=== PATIENT | male | born 1995 | race African-American/Black ===

== ENCOUNTER 2017-01-26 20:08 | Emergency (ER) | payer MEDICAID ==
[~2017-01-26] VITALS: Ht 180.3 cm; Wt 60.2 kg
[2017-01-26 20:19] VITALS: BP 152/72
== END 2017-01-26 20:56 | disposition home or self-care (01) ==
LOC: ED 20:35
DX: F10.120 Alcohol abuse with intoxication, uncomplicated (principal); F12.10 Cannabis abuse, uncomplicated; G40.909 Epilepsy, unspecified, not intractable, without status epilepticus
CPT/HCPCS: 99283

== ENCOUNTER 2018-08-26 15:55 | Emergency (ER) | payer MEDICAID ==
[~2018-08-26] VITALS: Ht 167.6 cm; Wt 71.4 kg
[~2018-08-26 15:55] MED LIST: LEVE500V6 PO
[2018-08-26 16:00] VITALS: BP 139/79
[2018-08-26] MEDS ORDERED: KETOROLAC 30 MG/1 ML ONE (17:21)
[2018-08-26] MEDS ORDERED: KETOROLAC 30 MG/1 ML IM ONE (17:30)
== END 2018-08-26 17:39 | disposition home or self-care (01) ==
LOC: ED 17:20
DX: G89.29 Other chronic pain (principal); M25.551 Pain in right hip; Q65.89 Other specified congenital deformities of hip; G40.909 Epilepsy, unspecified, not intractable, without status epilepticus
CPT/HCPCS: 73502; 96372; 99284; J1885

== ENCOUNTER 2018-09-13 12:09 | Emergency (ER) | payer MEDICAID ==
[~2018-09-13] VITALS: Ht 167.6 cm; Wt 80.0 kg
== END 2018-09-13 13:09 | disposition home or self-care (01) ==
LOC: ED 12:20
DX: R56.9 Unspecified convulsions (principal); Z76.0 Encounter for issue of repeat prescription
CPT/HCPCS: 99283

== ENCOUNTER 2018-10-12 10:35 | Inpatient (IN) | payer MEDICAID ==
[~2018-10-12] VITALS: Ht 170.2 cm; Wt 79.8 kg
[~2018-10-12 10:35] MED LIST changes: +ETOMIDATE 20 MG/10 ML ONE; +MIDAZOLAM 1 MG/ML, 5ML ONE; +PROPOFOL 10 MG/ML, 100ML IV ONE; +SUCCINYLCHOLINE 20 MG/ML, 10ML ONE
[2018-10-12] MEDS ORDERED: SODIUM CHLORIDE 0.9% 1,000 ML IV ONE (10:43)
[2018-10-12] MEDS: PROPOFOL 100 ML IV PRN ×4 (10:48→22:22)
[2018-10-12] MEDS ORDERED: SODIUM CHLORIDE 0.9% 1,000ML IVBOLUS ONE ×2 (11:00→12:30)
[2018-10-12] MEDS ORDERED: ETOMIDATE 40 MG/20 ML IVPush ONE (11:00)
[2018-10-12] MEDS ORDERED: SODIUM CHLORIDE FLUSH 10ML SYR IVF ONE (11:00)
[2018-10-12] MEDS ORDERED: SUCCINYLCHOLINE 20 MG/ML, 10ML IVPush ONE (11:00)
[2018-10-12] MEDS ORDERED: LEVETIRACETAM 2,000 MG in SODIUM CHLORIDE 0.9% 100 ML IV ONE (11:00)
[2018-10-12] MEDS ORDERED: LORazepam 2 MG/ML, 1ML IVPush ONE (11:00)
[2018-10-12 11:18] LABS: AMPHETAMINE SCREEN, URINE Negative (Negative); BARBITURATE SCREEN, URINE Negative (Negative); BENZODIAZEPINE SCREEN, URINE Positive (Negative); CANNABINOID SCREEN, URINE Negative (Negative); COCAINE SCREEN, URINE Negative (Negative); METHADONE SCREEN, URINE Negative (Negative); OPIATE SCREEN, URINE Negative (Negative)
[2018-10-12] MEDS ORDERED: LORazepam 2 MG/ML, 1ML ONE (11:18)
[2018-10-12 11:26] LABS: MICROSCOPIC INDICATED
[2018-10-12 11:27] LABS: MEAN CORPUSCULAR HEMOGLOBIN 33.8 pg (27.5-34.5); MEAN CORPUSCULAR HGB CONC 34.2 g/dL (33.2-36.2); MEAN PLATELET VOLUME 8.6 fL (7.4-10.4); PLATELET COUNT 301 x10^3/uL (130-400); RED BLOOD COUNT 5.34 x10^6/uL (4.38-5.82); RED CELL DISTRIBUTION WIDTH 12.2 % (9.4-14.8)
[2018-10-12 11:38] LABS: INTERNATIONAL NORMALIZED RATIO 1.03 (0.93-1.1); PROTHROMBIN TIME 10.9 Seconds (9.6-11.5)
[2018-10-12 11:39] LABS: CULTURE INDICATED? NO
[2018-10-12 11:40] LABS: CALCIUM 8.7 mg/dL (8.5-10.1); CHLORIDE 102 mmol/L (98-107); SALICYLATE LEVEL 2.2 mg/dL (2.8-20.0)
[2018-10-12 11:46] LABS: ALANINE AMINOTRANSFERASE 48 U/L (12-78); ALBUMIN 4.8 g/dL (3.4-5.0); ALKALINE PHOSPHATASE 86 U/L (45-117); BILIRUBIN,TOTAL 0.7 mg/dL (0.2-1.0); CREATINE KINASE, TOTAL 632 U/L (39-308); CREATININE 1.79 mg/dL (0.7-1.3); TOTAL PROTEIN 8.9 g/dL (6.4-8.2)
[2018-10-12 11:48] LABS: ACETAMINOPHEN < 2 mcg/mL (10-30)
[2018-10-12 11:49] LABS: FIO2 50 %
[2018-10-12] MEDS ORDERED: ACETAMINOPHEN 650 MG SUPP PR ONE (12:00)
[2018-10-12] MEDS ORDERED: AZITHROMYCIN 500 MG in SODIUM CHLORIDE 0.9% 250 ML IVPB ONE (12:00)
[2018-10-12] MEDS ORDERED: CEFTRIAXONE PMX 1GM/50ML 50 ML IVPB ONE (12:00)
[2018-10-12] MEDS ORDERED: SODIUM CHLORIDE FLUSH 10ML SYR IVF PRN (12:00)
[2018-10-12] MEDS ORDERED: SODIUM CHLORIDE 0.9% 1,000 ML IV SCH (12:02)
[2018-10-12 12:13] LABS: MD YES
[2018-10-12 12:16] LABS: BAND#(MANUAL) 0.68 x10^3/uL; BANDS%(MANUAL) 3 % (0-7); LYMPH#(MANUAL) 4.77 x10^3/uL (1-3.4); LYMPHS% (MANUAL) 21 % (22-44); METAMYELOCYTES# (MANUAL) 0.23 x10^3/uL (0-0); METAMYELOCYTES% (MANUAL) 1 % (0-1); MONOS#(MANUAL) 1.36 x10^3/uL (0.3-2.7); MONOS% (MANUAL) 6 % (2-9); SEG#(MANUAL) 15.66 x10^3/uL (1.8-6.8); SEGS% (MANUAL) 69 % (42-75)
[2018-10-12 12:17] LABS: <PLATELET ESTIMATE> ADEQUATE; <PLT MORPHOLOGY> NORMAL PLT MORPH; <RBC MORPHOLOGY> NORMAL
[2018-10-12] MEDS: AMPICILLIN/SULBACTAM 3 GM in SODIUM CHLORIDE 0.9% 100 ML IV SCH ×2 (12:24→20:24)
[2018-10-12] MEDS ORDERED: LORazepam 2 MG/ML, 1ML IVPush PRN ×2 (12:30)
[2018-10-12] MEDS ORDERED: hydrALAzine 20 MG/ML, 1ML IVPush PRN (12:30)
[2018-10-12] MEDS ORDERED: DEXTROSE 50%, 50ML SYRINGE IVPush PRN (12:30)
[2018-10-12] MEDS ORDERED: ONDANSETRON 2MG/ML, 2ML IVPush PRN (12:30)
[2018-10-12] MEDS ORDERED: GLUCAGON 1 MG IM PRN (12:30)
[2018-10-12] MEDS ORDERED: ACETAMINOPHEN 325 MG TABLET PO PRN (12:30)
[2018-10-12] MEDS ORDERED: morphine SULFATE 10 MG/ML, 1ML IVPush PRN (12:30)
[2018-10-12] MEDS ORDERED: HEPARIN 5,000 UNITS/ML, 1ML SQ SCH (12:30)
[2018-10-12] MEDS ORDERED: LIDOCAINE-MPF 1%, 2ML ENDO PRN (12:30)
[2018-10-12] MEDS ORDERED: PHARMACY MAY ADJ FOR RENAL FX MC SCH (12:30)
[2018-10-12] MEDS ORDERED: SODIUM CHLORIDE 0.9%, 500ML IVBOLUS ONE (12:30)
[2018-10-12] MEDS ORDERED: BISACODYL 10 MG SUPP PR PRN (12:30)
[2018-10-12] MEDS ORDERED: LACTULOSE 20 GM/30 ML UDC NG PRN (12:30)
[2018-10-12] MEDS ORDERED: SENNA/DOCUSATE TABLET NG PRN (12:30)
[2018-10-12] MEDS ORDERED: FENTANYL PF 100 MCG/2ML IVPush PRN (12:30)
[2018-10-12] MEDS ORDERED: ACETAMINOPHEN 650 MG SUPP PR PRN (12:30)
[2018-10-12] MEDS ORDERED: SENNOSIDES 8.8 MG/5 ML ORAL SOL NG PRN (12:30)
[2018-10-12] MEDS ORDERED: DEXTROSE 4 GM TAB.CHEW PO PRN (12:30)
[2018-10-12] MEDS ORDERED: PANTOPRAZOLE 40 MG IV IVPush SCH (12:30)
[2018-10-12] MEDS ORDERED: LABETALOL 5MG/ML, 20ML IVPush PRN (12:30)
[2018-10-12] MEDS: INSULIN LISPRO 100 UNITS/ML, PEN SQ-INSULIN SCH ×3 (12:30→20:26)
[2018-10-12] MEDS ORDERED: ACETAMINOPHEN 650 MG SUPP ONE (12:38)
[2018-10-12 12:41] LABS: ANION GAP 20 mmol/L (5-15)
[2018-10-12] MEDS ORDERED: KETAMINE 50 MG/ML, 10ML ONE (12:51)
[2018-10-12] MEDS: MIDAZOLAM 1 MG/ML, 2ML IVPush PRN ×5 (13:14→22:47)
[2018-10-12] MEDS: ALBUTEROL/IPRATROPIUM 2.5MG/0.5MG, 3 ML INLINE SCH ×4 (13:25→22:29)
[2018-10-12] MEDS: PANTOPRAZOLE 40 MG IV IV SCH (13:32)
[2018-10-12] MEDS: HEPARIN 5,000 UNITS/ML, 1ML SQ SCH ×2 (13:32→20:24)
[2018-10-12] MEDS: THIAMINE 200 MG, MVI ADULT 10 ML, FOLIC ACID 1 MG in D5%-0.9% NACL 1,000 ML IV SCH (13:33)
[2018-10-12] MEDS: NICOTINE 7 MG/24 HR PATCH.TD24 TD SCH (13:46)
[2018-10-12 14:14] VITALS: BP 112/77
[2018-10-12] MEDS: SODIUM CHLORIDE FLUSH 10ML SYR IVF SCH (20:24)
[2018-10-12] MEDS ORDERED: FAMOTIDINE 20 MG/2 ML IVPush SCH (21:00)
[2018-10-12 21:05] LABS: MICROSCOPIC AUTO
[2018-10-12 21:09] LABS: CULTURE INDICATED? NO
[2018-10-12] MEDS: LEVETIRACETAM 1,000 MG in SODIUM CHLORIDE 0.9% 100 ML IV SCH (23:35)
[2018-10-13] MEDS: MIDAZOLAM 1 MG/ML, 2ML IVPush PRN ×2 (01:02→02:28)
[2018-10-13] MEDS: PROPOFOL 100 ML IV PRN ×2 (01:52→05:36)
[2018-10-13] MEDS: ALBUTEROL/IPRATROPIUM 2.5MG/0.5MG, 3 ML INLINE SCH ×2 (02:13→07:30)
[2018-10-13 04:00] VITALS: BP 130/65
[2018-10-13 04:44] LABS: ALANINE AMINOTRANSFERASE 30 U/L (12-78); ALBUMIN 3.3 g/dL (3.4-5.0); ANION GAP 8 mmol/L (5-15); CALCIUM 8.1 mg/dL (8.5-10.1); CHLORIDE 111 mmol/L (98-107); CREATININE 0.95 mg/dL (0.7-1.3)
[2018-10-13 04:54] LABS: ALKALINE PHOSPHATASE 47 U/L (45-117); BILIRUBIN,TOTAL 2.2 mg/dL (0.2-1.0); THYROID STIMULATING HORMONE 0.282 mIU/L (0.358-3.740); TOTAL PROTEIN 6.3 g/dL (6.4-8.2)
[2018-10-13] MEDS: AMPICILLIN/SULBACTAM 3 GM in SODIUM CHLORIDE 0.9% 100 ML IV SCH ×3 (04:59→20:16)
[2018-10-13] MEDS: HEPARIN 5,000 UNITS/ML, 1ML SQ SCH ×2 (04:59→12:12)
[2018-10-13 05:48] LABS: BASOPHILS # (AUTO) 0.02 x10^3/uL (0-0.1); BASOPHILS % (AUTO) 0 % (0-1); EOSINOPHILS # (AUTO) 0.02 x10^3/uL (0-0.4); EOSINOPHILS % (AUTO) 0 % (1-7); LYMPHOCYTES % (AUTO) 13 % (22-44); MD NO; MEAN CORPUSCULAR HEMOGLOBIN 33.3 pg (27.5-34.5); MEAN CORPUSCULAR VOLUME 97.9 fL (81-97); MEAN PLATELET VOLUME 8.3 fL (7.4-10.4); MONOCYTES # (AUTO) 0.96 x10^3/uL (0.2-0.8); MONOCYTES % (AUTO) 7 % (2-9); NEUTROPHILS % (AUTO) 80 % (42-75); PLATELET COUNT 184 x10^3/uL (130-400); RED BLOOD COUNT 4.24 x10^6/uL (4.38-5.82); RED CELL DISTRIBUTION WIDTH 12.6 % (9.4-14.8)
[2018-10-13] MEDS: INSULIN LISPRO 100 UNITS/ML, PEN SQ-INSULIN SCH ×2 (08:18→11:29)
[2018-10-13] MEDS: PANTOPRAZOLE 40 MG IV IV SCH (08:59)
[2018-10-13] MEDS: SODIUM CHLORIDE FLUSH 10ML SYR IVF SCH ×2 (08:59→20:16)
[2018-10-13] MEDS: LEVETIRACETAM 1,000 MG in SODIUM CHLORIDE 0.9% 100 ML IV SCH ×2 (11:36→23:36)
[2018-10-13] MEDS: THIAMINE 200 MG, MVI ADULT 10 ML, FOLIC ACID 1 MG in D5%-0.9% NACL 1,000 ML IV SCH (14:00)
[2018-10-13] MEDS: NICOTINE 7 MG/24 HR PATCH.TD24 TD SCH (14:03)
[2018-10-13] MEDS: ENOXAPARIN 40 MG/0.4 ML SQ SCH (16:26)
[2018-10-13] MEDS: THIAMINE 100MG TABLET PO SCH (16:26)
[2018-10-13] MEDS: MULTIVITAMINS/MINERALS TABLET PO SCH (20:16)
[2018-10-14 04:00] VITALS: BP 121/60
[2018-10-14] MEDS: AMPICILLIN/SULBACTAM 3 GM in SODIUM CHLORIDE 0.9% 100 ML IV SCH ×3 (04:18→20:57)
[2018-10-14 04:29] LABS: O2 FLOW ROOM AIR L/min
[2018-10-14 04:30] LABS: BASOPHILS # (AUTO) 0.05 x10^3/uL (0-0.1); BASOPHILS % (AUTO) 1 % (0-1); EOSINOPHILS # (AUTO) 0.17 x10^3/uL (0-0.4); EOSINOPHILS % (AUTO) 2 % (1-7); LYMPHOCYTES # (AUTO) 2.44 x10^3/uL (1-3.4); LYMPHOCYTES % (AUTO) 33 % (22-44); MD NO; MEAN CORPUSCULAR HGB CONC 34.2 g/dL (33.2-36.2); MEAN CORPUSCULAR VOLUME 99.3 fL (81-97); MEAN PLATELET VOLUME 8.1 fL (7.4-10.4); MONOCYTES # (AUTO) 0.63 x10^3/uL (0.2-0.8); MONOCYTES % (AUTO) 8 % (2-9); NEUTROPHILS # (AUTO) 4.22 x10^3/uL (1.8-6.8); NEUTROPHILS % (AUTO) 56 % (42-75); PLATELET COUNT 159 x10^3/uL (130-400); RED BLOOD COUNT 3.74 x10^6/uL (4.38-5.82); RED CELL DISTRIBUTION WIDTH 12.3 % (9.4-14.8)
[2018-10-14 04:45] LABS: CHLORIDE 109 mmol/L (98-107)
[2018-10-14 04:56] LABS: ALANINE AMINOTRANSFERASE 27 U/L (12-78); ALBUMIN 2.9 g/dL (3.4-5.0); ALKALINE PHOSPHATASE 40 U/L (45-117); ANION GAP 7 mmol/L (5-15); BILIRUBIN,TOTAL 2.5 mg/dL (0.2-1.0); CREATINE KINASE, TOTAL 399 U/L (39-308); CREATININE 0.87 mg/dL (0.7-1.3); TOTAL PROTEIN 5.9 g/dL (6.4-8.2)
[2018-10-14] MEDS ORDERED: POTASSIUM CHLORIDE 20 MEQ TAB.ER.PRT PO ONE (08:30)
[2018-10-14] MEDS ORDERED: FOLIC ACID 1 MG TABLET PO SCH (09:00)
[2018-10-14] MEDS: SODIUM CHLORIDE FLUSH 10ML SYR IVF SCH ×2 (09:00→20:41)
[2018-10-14] MEDS: MULTIVITAMINS/MINERALS TABLET PO SCH ×2 (09:15→20:42)
[2018-10-14] MEDS: PANTOPRAZOLE 40 MG IV IV SCH (09:16)
[2018-10-14] MEDS: LEVETIRACETAM 500 MG TABLET PO SCH ×2 (10:17→20:42)
[2018-10-14 11:15] VITALS: BP 127/79
[2018-10-14 12:23] VITALS: BP 131/80
[2018-10-14] MEDS: NICOTINE 7 MG/24 HR PATCH.TD24 TD SCH (12:52)
[2018-10-14] MEDS: ENOXAPARIN 40 MG/0.4 ML SQ SCH (17:16)
[2018-10-14] MEDS: THIAMINE 100MG TABLET PO SCH (17:16)
[2018-10-14 19:55] VITALS: BP 152/89
[2018-10-15] MEDS ORDERED: AMOX1TAB64 PO (06:48)
[2018-10-15] MEDS ORDERED: LEVE100020 PO (06:48)
== END 2018-10-15 05:41 | disposition left against medical advice (07) | DRG 871 ==
LOC: ED 11:34 → EDIP 11:44 → CCU 13:10 → 4WST 10-14 10:43
PROVIDERS: ADMIT Hospitalist; ATTEND Hospitalist
PROC: 0BH17EZ Insertion of Endotracheal Airway into Trachea, Via Natural or Artificial Opening (ICD-10-PCS; principal; 2018-10-12)
PROC: 5A1935Z Respiratory Ventilation, Less than 24 Consecutive Hours (ICD-10-PCS; 2018-10-12)
PROC: 0T9B70Z Drainage of Bladder with Drainage Device, Via Natural or Artificial Opening (ICD-10-PCS; 2018-10-12)
DX: A41.9 Sepsis, unspecified organism (principal); J69.0 Pneumonitis due to inhalation of food and vomit; J96.01 Acute respiratory failure with hypoxia; G93.40 Encephalopathy, unspecified; N17.9 Acute kidney failure, unspecified; E87.2 Acidosis; Z99.11 Dependence on respirator [ventilator] status; F10.239 Alcohol dependence with withdrawal, unspecified; G40.901 Epilepsy, unspecified, not intractable, with status epilepticus; F12.90 Cannabis use, unspecified, uncomplicated; F17.210 Nicotine dependence, cigarettes, uncomplicated; B96.3 Hemophilus influenzae [H. influenzae] as the cause of diseases classified elsewhere; Z53.21 Procedure and treatment not carried out due to patient leaving prior to being seen by health care provider; M89.9 Disorder of bone, unspecified; Z82.0 Family history of epilepsy and other diseases of the nervous system; Z91.19 Patient's noncompliance with other medical treatment and regimen; Z91.018 Allergy to other foods; Z56.0 Unemployment, unspecified; Z71.41 Alcohol abuse counseling and surveillance of alcoholic
CPT/HCPCS: 36415; 36600; 99291; J7042; J7620; 70450; 70551; 71045; 80053; 80307; 80329; 81001; 82140; 82550; 82803; 82962; 83605; 83735; 84100; 84443; 84478; 85025; 85610; 85730; 87040; 87070; 87081; 87205; 93005; 94002; 94003; 94640; 95951; G0378; J0295; J1644; J1650; J1953; J2250; J2704; J3411; C9113; G0480; J0330; J0360; J2060; J7030; J7040

== ENCOUNTER 2018-11-06 12:01 | Emergency (ER) | payer MEDICAID ==
[~2018-11-06] VITALS: Ht 167.6 cm; Wt 73.8 kg
[~2018-11-06 12:01] MED LIST changes: +AMOX1TAB64 PO; -ETOMIDATE 20 MG/10 ML ONE; +LEVE100020 PO; -MIDAZOLAM 1 MG/ML, 5ML ONE; -PROPOFOL 10 MG/ML, 100ML IV ONE; -SUCCINYLCHOLINE 20 MG/ML, 10ML ONE
[2018-11-06 12:17] VITALS: BP 131/78
--- NOTE | 2018-11-06 12:46 | NUR ---
Patient/Caregiver given discharge instructions and they have confirmed that they understand the instructions. Patient ambulatory with steady gait.
== END 2018-11-06 12:47 | disposition home or self-care (01) ==
LOC: ED 12:31
DX: G40.909 Epilepsy, unspecified, not intractable, without status epilepticus (principal)
CPT/HCPCS: 99283

== ENCOUNTER 2018-11-22 11:55 | Emergency (ER) | payer MEDICAID ==
[~2018-11-22] VITALS: Ht 167.6 cm; Wt 75.8 kg
[2018-11-22 11:57] VITALS: BP 138/60
== END 2018-11-22 12:26 | disposition home or self-care (01) ==
LOC: ED 12:24
DX: G40.901 Epilepsy, unspecified, not intractable, with status epilepticus (principal); Z76.0 Encounter for issue of repeat prescription; F12.10 Cannabis abuse, uncomplicated
CPT/HCPCS: 99283

== ENCOUNTER 2018-12-14 15:58 | Emergency (ER) | payer MEDICAID ==
[~2018-12-14] VITALS: Ht 172.7 cm; Wt 76.3 kg
[2018-12-14 16:02] VITALS: BP 139/77
[2018-12-14] MEDS ORDERED: LEVE500T53 PO (16:52)
--- NOTE | 2018-12-14 16:57 | NUR ---
TASK RN: Patient/Caregiver given discharge instructions and they have confirmed that they understand the instructions. Patient ambulatory with steady gait.
--- NOTE | 2018-12-14 17:00 | NUR ---
PT CARE TRANSFERRED TO CONNIE GONZALEZ RN.
== END 2018-12-14 16:59 | disposition home or self-care (01) ==
LOC: ED 16:20
DX: G40.909 Epilepsy, unspecified, not intractable, without status epilepticus (principal); G89.29 Other chronic pain; M25.551 Pain in right hip; M91.10 Juvenile osteochondrosis of head of femur [Legg-Calve-Perthes], unspecified leg; F17.200 Nicotine dependence, unspecified, uncomplicated
CPT/HCPCS: 99283

== ENCOUNTER 2019-03-16 12:27 | Emergency (ER) | payer MEDICAID ==
[~2019-03-16] VITALS: Ht 167.6 cm; Wt 78.9 kg
[~2019-03-16 12:27] MED LIST changes: +LEVE500T53 PO
[2019-03-16 12:38] VITALS: BP 157/92
== END 2019-03-16 13:19 | disposition home or self-care (01) ==
LOC: ED 13:00
DX: G40.909 Epilepsy, unspecified, not intractable, without status epilepticus (principal); Z76.0 Encounter for issue of repeat prescription
CPT/HCPCS: 99283

== ENCOUNTER 2019-04-06 15:23 | Emergency (ER) | payer MEDICAID ==
[~2019-04-06] VITALS: Ht 165.1 cm; Wt 75.0 kg
[2019-04-06 15:26] VITALS: BP 149/89
== END 2019-04-06 16:59 | disposition home or self-care (01) ==
LOC: ED 16:20
DX: G43.909 Migraine, unspecified, not intractable, without status migrainosus (principal); F17.200 Nicotine dependence, unspecified, uncomplicated; Z76.0 Encounter for issue of repeat prescription
CPT/HCPCS: 99283

== ENCOUNTER 2019-10-17 09:54 | Emergency (ER) | payer MEDICAID ==
[~2019-10-17] VITALS: Ht 167.6 cm; Wt 72.5 kg
[2019-10-17] MEDS ORDERED: LEVETIRACETAM 500 MG in SODIUM CHLORIDE 0.9% 100 ML IV ONE (10:30)
[2019-10-17 10:47] LABS: ALBUMIN 4.2 g/dL (3.4-5.0); ANION GAP 7 mmol/L (5-15); CALCIUM 9.5 mg/dL (8.5-10.1); CHLORIDE 106 mmol/L (98-107); CREATININE 1.33 mg/dL (0.7-1.3)
[2019-10-17 11:07] VITALS: BP 131/79
--- NOTE | 2019-10-17 11:31 | NUR ---
PT GIVEN TAXI VOUCHER TO GET HOME. 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
== END 2019-10-17 11:10 | disposition home or self-care (01) ==
LOC: ED 11:08
DX: G40.319 Generalized idiopathic epilepsy and epileptic syndromes, intractable, without status epilepticus (principal)
CPT/HCPCS: 36415; 80048; 82040; 99283; J1953

== ENCOUNTER 2020-06-08 07:28 | Emergency (ER) | payer MEDICAID ==
[~2020-06-08] VITALS: Ht 167.6 cm; Wt 73.0 kg
--- NOTE | 2020-06-08 07:51 | NUR ---
BIB [facility] PT WITH 2 WITNESSED SEIZURES LAST AT 0700 LASTING APPROX 30 SEC, NO REPORT OF INCONTINECE PT WITH POST ICTAL AFFECT PER EMS ON ARRIVAL TO SCENE. PT WITH HX SEIZURES ON KEPPRA, HAS NOT TAKEN FOR 3 DAYS.
[2020-06-08 08:04] LABS: MICROSCOPIC AUTO
[2020-06-08 08:13] LABS: BASOPHILS # (AUTO) 0.05 x10^3/uL (0-0.1); BASOPHILS % (AUTO) 1 % (0-1); EOSINOPHILS # (AUTO) 0.28 x10^3/uL (0-0.4); EOSINOPHILS % (AUTO) 4 % (1-7); LYMPHOCYTES % (AUTO) 16 % (22-44); MD NO; MEAN CORPUSCULAR HEMOGLOBIN 33.4 pg (27.5-34.5); MEAN CORPUSCULAR VOLUME 101.3 fL (81-97); MEAN PLATELET VOLUME 8.4 fL (7.4-10.4); MONOCYTES # (AUTO) 0.33 x10^3/uL (0.2-0.8); MONOCYTES % (AUTO) 4 % (2-9); NEUTROPHILS # (AUTO) 5.94 x10^3/uL (1.8-6.8); NEUTROPHILS % (AUTO) 75 % (42-75); PLATELET COUNT 247 x10^3/uL (130-400); RED BLOOD COUNT 5.08 x10^6/uL (4.38-5.82); RED CELL DISTRIBUTION WIDTH 12.8 % (9.4-14.8)
[2020-06-08 08:20] LABS: ALANINE AMINOTRANSFERASE 29 U/L (12-78); ALBUMIN 3.9 g/dL (3.4-5.0); ANION GAP 9 mmol/L (5-15); CALCIUM 8.9 mg/dL (8.5-10.1); CHLORIDE 107 mmol/L (98-107); CREATININE 1.37 mg/dL (0.7-1.3)
[2020-06-08 08:23] LABS: ALKALINE PHOSPHATASE 60 U/L (45-117); BILIRUBIN,TOTAL 1.3 mg/dL (0.2-1.0); TOTAL PROTEIN 7.7 g/dL (6.4-8.2)
[2020-06-08] MEDS ORDERED: SODIUM CHLORIDE FLUSH 10ML SYR IVF ONE (09:00)
[2020-06-08] MEDS ORDERED: LEVETIRACETAM 1,000 MG in SODIUM CHLORIDE 0.9% 100 ML IV ONE (09:00)
[2020-06-08 09:52] VITALS: BP 130/70
== END 2020-06-08 09:57 | disposition home or self-care (01) ==
LOC: ED 08:46
DX: M91.11 Juvenile osteochondrosis of head of femur [Legg-Calve-Perthes], right leg (principal); R56.9 Unspecified convulsions; I30.9 Acute pericarditis, unspecified; Z72.89 Other problems related to lifestyle
CPT/HCPCS: 36415; 80053; 81001; 85025; 93005; 96374; 99284; J1953

== ENCOUNTER 2020-08-02 06:44 | Emergency (ER) | payer MEDICAID ==
[~2020-08-02] VITALS: Ht 167.6 cm; Wt 72.0 kg
--- NOTE | 2020-08-02 06:50 | NUR ---
SEIZURE PADS IN PLACE
--- NOTE | 2020-08-02 06:50 | NUR ---
HISTORY OF SEIZURES AND THEY HAVE BEEN INCREASING IN FREQUENCY, HAVING ONE TWO WEEKS AGO AND ONE THIS MORNING. PT TAKES KEPPRA AND HAS ONE LEFT AT THIS TIME.
[2020-08-02 07:29] LABS: ANION GAP 13 mmol/L (5-15); CALCIUM 9.3 mg/dL (8.5-10.1); CHLORIDE 105 mmol/L (98-107)
--- NOTE | 2020-08-02 07:44 | NUR ---
LOW BLOOD SUGAR ON LAB DRAW. PROVIDED SNACKS. WANTING TO GO HOME. REMAINS SOMEWHAT DROWSY
[2020-08-02 08:12] VITALS: BP 141/77
== END 2020-08-02 08:24 | disposition home or self-care (01) ==
LOC: ED 08:11
DX: G40.909 Epilepsy, unspecified, not intractable, without status epilepticus (principal); N18.2 Chronic kidney disease, stage 2 (mild); R00.0 Tachycardia, unspecified
CPT/HCPCS: 36415; 80048; 93005; 99284

== ENCOUNTER 2020-08-05 03:45 | Emergency (ER) | payer MEDICAID ==
[~2020-08-05] VITALS: Ht 167.6 cm; Wt 75.3 kg
[2020-08-05 03:59] VITALS: BP 135/88
== END 2020-08-05 04:22 | disposition home or self-care (01) ==
LOC: ED 04:00
DX: R56.9 Unspecified convulsions (principal); Z76.0 Encounter for issue of repeat prescription
CPT/HCPCS: 99281

== ENCOUNTER 2020-08-05 06:00 | Emergency (ER) | payer MEDICAID ==
--- NOTE | 2020-08-05 06:10 | NUR ---
ERP TO BEDSIDE.
--- NOTE | 2020-08-05 06:12 | NUR ---
THIS PT WAS OZZIE AGUAYO AFTER HIS MOTHER CALLED AFTER WITNESSING AN APPROX 40 SECOND SZ. OLIVIER FOUND PT SUPINE WITH EVIDENCE THAT PT HAD VOMITTED. PT MAINTAINING AIRWAY ON ARRIVAL TO ED. PT CONNECTED TO CARDIAC, BP AND O2 MONITORS. SZ PADS IN PLACE. CALL LIGHT IN REACH.
[2020-08-05] MEDS ORDERED: LEVETIRACETAM 1,000 MG in SODIUM CHLORIDE 0.9% 100 ML IV ONE (06:30)
[2020-08-05] MEDS ORDERED: SODIUM CHLORIDE FLUSH 10ML SYR IVF ONE (06:30)
--- NOTE | 2020-08-05 06:52 | NUR ---
BEDSIDE REPORT TO JEROME PENA. PT SLEEPING, RESPIRATIONS EVEN AND UNLABORED, GIFTY.
--- NOTE | 2020-08-05 07:07 | NUR ---
REPORT BEDSIDE FROM VAN NUYS. PT SLEEPING, VSS
[2020-08-05 07:08] VITALS: BP 146/80
--- NOTE | 2020-08-05 07:35 | NUR ---
PLAN TO MD TANJA LAW AT BEDSIDE.
--- NOTE | 2020-08-05 08:19 | NUR ---
Patient/Caregiver given discharge instructions and they have confirmed that they understand the instructions. Patient ambulatory with steady gait.
== END 2020-08-05 08:21 | disposition home or self-care (01) ==
LOC: ED 06:34
DX: R56.9 Unspecified convulsions (principal); R55 Syncope and collapse; I30.9 Acute pericarditis, unspecified
CPT/HCPCS: 82962; 93005; 96365; 99284; J1953